=== PATIENT | male | born 1945 | race Caucasian/White ===

== ENCOUNTER 2017-06-25 18:29 | Emergency (ER) | payer MEDICARE, OTHER ==
[~2017-06-25] VITALS: Ht 167.6 cm; Wt 61.2 kg
[2017-06-25 18:38] VITALS: BP 133/57
== END 2017-06-25 19:48 | disposition home or self-care (01) ==
LOC: ER 18:37
DX: K62.89 Other specified diseases of anus and rectum (principal); I11.0 Hypertensive heart disease with heart failure; I50.9 Heart failure, unspecified; E11.9 Type 2 diabetes mellitus without complications; N40.0 Benign prostatic hyperplasia without lower urinary tract symptoms; J44.9 Chronic obstructive pulmonary disease, unspecified; Z98.890 Other specified postprocedural states
CPT/HCPCS: A4606; Z7610